=== PATIENT | female | born 1985 | race Caucasian/White ===

== ENCOUNTER 2021-04-21 06:09 | Inpatient (IN) | payer MEDICAID, SELFPAY ==
[~2021-04-21] VITALS: Ht 154.9 cm; Wt 83.9 kg
[2021-04-21 06:16] VITALS: BP 177/99
--- NOTE | 2021-04-21 06:21 | NUR ---
PT TO LOBBY TO A/W EVALUATION
--- NOTE | 2021-04-21 06:23 | NUR ---
URINE SPECIMEN PROVIDED.
--- NOTE | 2021-04-21 07:00 | NUR ---
RECEIVED REPORT FROM MANA VASQUEZ, TRANSFER OF CARE AT THIS TIME.
--- NOTE | 2021-04-21 07:03 | NUR ---
PT AMBULATED UNASSISTED TO ER CHAIR A
[2021-04-21 07:25] LABS: BASOPHILS # (AUTO) 0.1 K/uL (0.00-0.22); BASOPHILS % (AUTO) 0.9 % (0.0-2.0); EOSINOPHILS # (AUTO) 0.4 K/uL (0-0.4); EOSINOPHILS % (AUTO) 3.5 % (0.0-4.0); HEMATOCRIT 27.9 % (36-48); HEMOGLOBIN 8.4 g/dL (12.0-16.0); LYMPHOCYTES # (AUTO) 2.5 K/uL (2.5-16.5); LYMPHOCYTES % (AUTO) 24.6 % (20.5-51.1); MEAN CORPUSCULAR HEMOGLOBIN 19 pg (27-31); MEAN CORPUSCULAR HGB CONC 30 g/dL (33-37); MEAN CORPUSCULAR VOLUME 61.7 fL (80-94); MONOCYTES # (AUTO) 0.5 K/uL (0.8-1.0); MONOCYTES % (AUTO) 5.1 % (1.7-9.3); NEUTROPHILS # (AUTO) 6.6 K/uL (1.8-7.7); NEUTROPHILS % (AUTO) 65.9 % (42.2-75.2); PLATELET COUNT (AUTO) 301 K/uL (140-450); RED BLOOD CELL COUNT(AUTO) 4.52 MIL/uL (4.20-5.40); RED CELL DISTRIBUTION WIDTH 19.1 % (11.6-13.7)
[2021-04-21] MEDS ORDERED: KETOROLAC 30 MG/ML VIAL IVP ONE (07:35)
[2021-04-21 07:38] LABS: BILIRUBIN,URINE NEGATIVE (NEGATIVE); BLOOD, URINE NEGATIVE (NEGATIVE); COLOR,URINE YELLOW (YELLOW); LEUKOCYTE ESTERASE ,URINE NEGATIVE (NEGATIVE); UGLUCOSE 3+ (NEGATIVE)
[2021-04-21 07:40] LABS: PROTHROMBIN TIME 9.9 secs (10.8-13.4)
[2021-04-21 07:46] LABS: ANION GAP 12.8 (8-16); CARBON DIOXIDE 25.2 mmol/L (21-32); CREATININE 0.7 mg/dL (0.6-1.3)
[2021-04-21 07:52] LABS: ALBUMIN 3.5 g/dL (3.4-5.0); TOTAL BILIRUBIN 0.7 mg/dL (0.0-1.0)
[2021-04-21 08:08] LABS: APPEARANCE,URINE SLIGHTLY HAZY (CLEAR); RBC,URINE 0-5 /HPF (0-5); WBC,URINE 0-5 /HPF (0-5); YEAST,URINE Few /HPF (None Seen)
[2021-04-21 08:10] LABS: NITRITE, URINE POSITIVE (NEGATIVE)
[2021-04-21] MEDS ORDERED: POTASSIUM CHLORIDE 40 MEQ, LIDOCAINE MPF 1% 25 MG in NACL 0.9% 250 ML IV PRN (09:20)
[2021-04-21] MEDS ORDERED: ONDANSETRON 4 MG/2 ML VIAL IM/IVP PRN (09:20)
[2021-04-21] MEDS ORDERED: HYDROcodone/APAP 5/325 MG 1 TAB TAB PO PRN (09:20)
[2021-04-21] MEDS ORDERED: DOCUSATE SODIUM 100 MG GELCAP PO PRN (09:20)
[2021-04-21] MEDS ORDERED: SODIUM PHOS / POTASSIUM PHOS 1 PKT PDR PO PRN (09:20)
[2021-04-21] MEDS ORDERED: NACL 0.9% 1,000 ML IV SCH (09:20)
[2021-04-21] MEDS ORDERED: MAG SULF 2000 MG/WATER PREMIX 50 ML IV PRN (09:20)
[2021-04-21] MEDS ORDERED: ACETAMINOPHEN 325 MG TAB PO PRN (09:20)
[2021-04-21] MEDS ORDERED: MORPHINE SULFATE 2 MG/ML SYR IVP PRN (09:20)
[2021-04-21] MEDS ORDERED: DEXTROSE 50% 50 ML SYR IVP PRN (09:30)
[2021-04-21] MEDS: PANTOPRAZOLE 40 MG INJ VIAL IVP SCH (10:27)
--- NOTE | 2021-04-21 11:00 | NUR ---
[facility] SWAB COLLECTED AND HANDED TO [employer] COORDINATOR.
--- NOTE | 2021-04-21 11:00 | NUR ---
PT TAKEN TO BED 14. PT IN GOWN AND GIVEN BLANKET. PT POSITIONED FOR COMFORT.
--- NOTE | 2021-04-21 11:01 | NUR ---
PT ADMITTED TO [facility] UNDER DR DE LA CRUZ FOR ABDOMINAL WALL SEROMA. NO BEDS ON THE FLOOR. PT WILL BE HELD IN ER.
[2021-04-21] MEDS: DEXT 5% /NACL 0.9% 1,000 ML IV SCH ×2 (11:02→22:09)
[2021-04-21 11:09] LABS: MAGNESIUM 1.8 mg/dL (1.8-2.4); PHOSPHORUS 2.8 mg/dL (2.5-4.9)
[2021-04-21] MEDS: BLOOD GLUCOSE MONITORING 1 DEV DEV FS SCH ×3 (11:29→21:00)
[2021-04-21] MEDS: INSULIN LISPRO SLIDING SCALE 100 UNITS/ML VIAL SUBQ PRN (11:30)
--- NOTE | 2021-04-21 11:34 | NUR ---
PT BS 262. GAVE INSULIN PER SLIDING SCALE
--- NOTE | 2021-04-21 12:42 | NUR ---
DR DE LA CRUZ EVALUATING PT AT THIS TIME
--- NOTE | 2021-04-21 16:55 | NUR ---
PT BS 131, NO COVERAGE NEEDED AT THIS TIME
--- NOTE | 2021-04-21 19:15 | NUR ---
RECEIVED REPORT FROM CHRISTINA PORTER. ASSUMED CARE AT THIS TIME. PT DENIES PAIN AT THIS TIME. ALL NEEDS MET. WILL CONTINUE TO MONITOR.
--- NOTE | 2021-04-21 21:00 | NUR ---
BS 132, NO COVERAGE NEEDED AT THIS TIME.
--- NOTE | 2021-04-21 21:46 | NUR ---
C/O 8/10 THROBBING HEADACHE. MORPHINE 1MG IVP ADMINISTERED PER ORDERED.
[2021-04-21] MEDS ORDERED: FLUCONAZOLE 100 MG/NS PREMIX 50 ML IV SCH (22:45)
[2021-04-21] MEDS ORDERED: FLUCONAZOLE 100 MG TAB PO ONE (23:05)
--- NOTE | 2021-04-21 23:07 | NUR ---
100MG FLUCONAZOLE IVPB ORDERED, MEDICATION NOT AVAILABLE. DR. MCKINLEY MADE AWARE, GAVE ORDER FOR 100MG FLUCONAZOLE PO. ORDER CARRIED OUT.
--- NOTE | 2021-04-22 01:15 | NUR ---
Patient appears to be resting comfortably in bed. Vital Signs within normal limits. Respirations even and unlabored. D5/NS still infusing at 80cc/hr. Pain improvement, 12/16. Will continue to monitor.
--- NOTE | 2021-04-22 04:00 | NUR ---
PT SEEN WITH EYES CLOSED. VISIBLE CHEST RISE AND FALL NOTED. NO C/O PAIN AT THIS TIME. BED IN LOWEST POSITION. WILL CONTINUE TO MONITOR.
[2021-04-22] MEDS ORDERED: ceFAZolin 1,000 MG VIAL ONE (05:02)
--- NOTE | 2021-04-22 07:15 | NUR ---
TRANSFER OF CARE AT THIS TIME. PT LAYING IN BED WITH EVEN AND UNLABORED RESPIRATIONS. A/O X4 GCS 15. FLUIDS RUNNING AT 80ML/HR. WILL CONTINUE TO MONITOR
[2021-04-22] MEDS: BLOOD GLUCOSE MONITORING 1 DEV DEV FS SCH ×3 (07:49→16:58)
[2021-04-22] MEDS: INSULIN LISPRO SLIDING SCALE 100 UNITS/ML VIAL SUBQ PRN ×2 (07:56→17:05)
--- NOTE | 2021-04-22 08:08 | NUR ---
REPORT GIVEN TO DOMINGUEZ VASQUEZ FOR ADMISSION TO [facility].
--- NOTE | 2021-04-22 08:12 | NUR ---
Patient will be admitted to care of DR DE LA CRUZ. Admited to [facility]. Will go to [id number]. Belongings list completed. Report to DOMINGUEZ VASQUEZ.
--- NOTE | 2021-04-22 08:45 | NUR ---
RECEIVED REPORT FOR PT FROM ER NURSE. AWAITING PT ARRIVAL ONTO UNIT.
--- NOTE | 2021-04-22 08:50 | NUR ---
PT ARRIVED TO UNIT. CONDITION IS STABLE. PT HAS LAC 20 G PATENT AND INTACT. PT DNIES PAIN OR DISCOMFORT AT THIS TIME. WILL CONTINUE TO MONITOR PT CONDITION.
--- NOTE | 2021-04-22 09:02 | NUR ---
PATIENT HAS BEEN SCREENED AND CATEGORIZED LOW NUTRITION RISK. PATIENT WILL BE SEEN WITHIN 7 DAYS OF ADMISSION. 04/28/[address]
[2021-04-22] MEDS: PANTOPRAZOLE 40 MG INJ VIAL IVP SCH (09:18)
[2021-04-22 09:50] LABS: BASOPHILS # (AUTO) 0.1 K/uL (0.00-0.22); BASOPHILS % (AUTO) 1.1 % (0.0-2.0); EOSINOPHILS # (AUTO) 0.3 K/uL (0-0.4); EOSINOPHILS % (AUTO) 3.7 % (0.0-4.0); HEMATOCRIT 26.5 % (36-48); LYMPHOCYTES # (AUTO) 2.1 K/uL (2.5-16.5); LYMPHOCYTES % (AUTO) 26.9 % (20.5-51.1); MEAN CORPUSCULAR HEMOGLOBIN 18 pg (27-31); MEAN CORPUSCULAR HGB CONC 30 g/dL (33-37); MEAN CORPUSCULAR VOLUME 60.5 fL (80-94); MONOCYTES # (AUTO) 0.4 K/uL (0.8-1.0); MONOCYTES % (AUTO) 4.8 % (1.7-9.3); NEUTROPHILS % (AUTO) 63.5 % (42.2-75.2); PLATELET COUNT (AUTO) 263 K/uL (140-450); RED BLOOD CELL COUNT(AUTO) 4.39 MIL/uL (4.20-5.40); RED CELL DISTRIBUTION WIDTH 19.4 % (11.6-13.7); WHITE BLOOD COUNT (AUTO) 7.9 K/uL (4.8-10.8)
[2021-04-22] MEDS: DEXT 5% /NACL 0.9% 1,000 ML IV SCH (10:30)
--- NOTE | 2021-04-22 10:30 | NUR ---
PERFORMED FREQ ROUNDING PT CONDITION IS STABLE. PT IS AWAKE AND WATCHING TELEVISION.
[2021-04-22 10:33] LABS: ANION GAP 10.2 (8-16); CARBON DIOXIDE 27.5 mmol/L (21-32); CREATININE 0.7 mg/dL (0.6-1.3); POTASSIUM 3.7 mmol/L (3.5-5.1)
[2021-04-22 12:00] VITALS: BP 145/93
--- NOTE | 2021-04-22 12:20 | NUR ---
PT WAS TRANSPORTED TO OR VIA GURNEY BY [facility] ([employer]). PT CONDITION IS STABLE UPON TRANSFER.
[2021-04-22] MEDS ORDERED: MIDAZOLAM 2 MG/2 ML VIAL ONE (12:50)
[2021-04-22] MEDS ORDERED: fentaNYL citrate 0.05 MG/ML VIAL ONE (12:50)
[2021-04-22] MEDS ORDERED: SEVOFLURANE 250 ML BTL INH ONE (12:55)
[2021-04-22] MEDS ORDERED: BUPIVACAINE-MPF/EPI 0.5% 30 ML VIAL INJ ONE (12:56)
[2021-04-22] MEDS ORDERED: MEPERIDINE 50 MG/ML SYR ONE (13:23)
[2021-04-22] MEDS ORDERED: ONDANSETRON 4 MG/2 ML VIAL ONE (13:28)
[2021-04-22] MEDS ORDERED: PROPOFOL 200 MG/20 ML VIAL IV ONE (13:29)
[2021-04-22] MEDS ORDERED: DEXAMETHASONE 4 MG/ML VIAL ONE (13:29)
[2021-04-22] MEDS ORDERED: diphenhydrAMINE 50 MG/ML VIAL IVP PRN (13:35)
[2021-04-22] MEDS ORDERED: ONDANSETRON 4 MG/2 ML VIAL IVP PRN (13:35)
[2021-04-22] MEDS ORDERED: HYDROmorphone 1 MG/ML AMP IVP PRN (13:35)
[2021-04-22] MEDS ORDERED: MEPERIDINE 25 MG/ML SYR IVP PRN (13:35)
[2021-04-22] MEDS ORDERED: LACTATED RINGERS 1,000 ML IV SCH (13:35)
[2021-04-22] MEDS ORDERED: BLOOD GLUCOSE MONITORING 1 DEV DEV FS ONE (13:35)
--- NOTE | 2021-04-22 13:53 | NUR ---
UNABLE TO ADMINISTER SCHEDULED MEDS. PT OFF UNIT IN PROCEDURE.
--- NOTE | 2021-04-22 15:02 | NUR ---
PT EVE ON UNIT FROM PROCEDURE. RECEIVED REPORT FROM [employer]. PT RECEIVED MEDS DURING PROCEDURE. PT RECEIVED 700 ML OF FLUIDS, 50 ML OF EBL, AND 0 URINE OUTPUT. WILL CONTINUE TO MONITOR ME CONDITION.
[2021-04-22 15:40] VITALS: BP 145/93
[2021-04-22 16:00] VITALS: BP 141/81
--- NOTE | 2021-04-22 17:36 | NUR ---
PT CONDITION IS STABLE. PT IS AWAKE AND DENIES PAIN OR DISCOMFORT. DRAINED KWESI - 75 ML OUT. WILL CONTINUE TO MONITOR.
--- NOTE | 2021-04-22 19:40 | NUR ---
PT WALKED OUT VIA WHEELCHAIR. PT CONDITION IS STABLE. IV DISCONTINUED AND ID BAND REMOVED. PT TAKEN IN PRIVATE VEHICLE BY FAMILY TO HOME.
== END 2021-04-22 20:15 | disposition home or self-care (01) | DRG 813 ==
LOC: MED 06:09 → MTU 18:53 → MMU 04-22 04:42
PROVIDERS: ADMIT Hospitalist; ATTEND Hospitalist
PROC: 0W9F30Z Drainage of Abdominal Wall with Drainage Device, Percutaneous Approach (ICD-10-PCS; principal; 2021-04-22 13:35)
DX: K91.873 Postprocedural seroma of a digestive system organ or structure following other procedure (principal); E11.00 Type 2 diabetes mellitus with hyperosmolarity without nonketotic hyperglycemic-hyperosmolar coma (NKHHC); E83.51 Hypocalcemia; D64.9 Anemia, unspecified; D73.9 Disease of spleen, unspecified; B88.8 Other specified infestations; Z20.822 Contact with and (suspected) exposure to COVID-19; R74.01 Elevation of levels of liver transaminase levels; K76.0 Fatty (change of) liver, not elsewhere classified; Y83.8 Other surgical procedures as the cause of abnormal reaction of the patient, or of later complication, without mention of misadventure at the time of the procedure; Z98.891 History of uterine scar from previous surgery; Y92.89 Other specified places as the place of occurrence of the external cause
CPT/HCPCS: 36415; 76705; 80048; 80053; 81001; 82948; 83036; 83690; 83735; 84100; 85025; 85610; 85730; 87070; 87075; 87086; 87205; 88304; 96365; 96375; 99285; C9113; J0690; J1100; J1450; J1815; J1885; J2175; J2250; J2270; J2405; J2704; J3010; J3490; J7060; J7120; Q0092

== ENCOUNTER 2021-06-24 20:37 | Emergency (ER) | payer MEDICAID, SELFPAY ==
[~2021-06-24] VITALS: Ht 154.9 cm; Wt 79.4 kg
[~2021-06-24 20:37] MED LIST: CLIN300C2 PO; FERR325E14 PO; LEVO750T51 PO; PANT40EC56 PO
[2021-06-24 20:40] VITALS: BP 154/117
[2021-06-24 23:01] LABS: BASOPHILS # (AUTO) 0.1 K/uL (0.00-0.22); BASOPHILS % (AUTO) 0.4 % (0.0-2.0); EOSINOPHILS # (AUTO) 0.3 K/uL (0-0.4); EOSINOPHILS % (AUTO) 2.5 % (0.0-4.0); HEMATOCRIT 34.5 % (36-48); LYMPHOCYTES % (AUTO) 23.8 % (20.5-51.1); MEAN CORPUSCULAR HEMOGLOBIN 23 pg (27-31); MEAN CORPUSCULAR HGB CONC 32 g/dL (33-37); MONOCYTES # (AUTO) 0.7 K/uL (0.8-1.0); MONOCYTES % (AUTO) 5.8 % (1.7-9.3); NEUTROPHILS # (AUTO) 8.6 K/uL (1.8-7.7); NEUTROPHILS % (AUTO) 67.5 % (42.2-75.2); PLATELET COUNT (AUTO) 377 K/uL (140-450); RED BLOOD CELL COUNT(AUTO) 4.86 MIL/uL (4.20-5.40); WHITE BLOOD COUNT (AUTO) 12.7 K/uL (4.8-10.8)
[2021-06-24 23:16] LABS: ALBUMIN 3.4 g/dL (3.4-5.0); CARBON DIOXIDE 31.5 mmol/L (21-32); CREATININE 0.8 mg/dL (0.6-1.3); POTASSIUM 4.5 mmol/L (3.5-5.1); TOTAL BILIRUBIN 0.4 mg/dL (0.0-1.0)
--- NOTE | 2021-06-24 23:36 | NUR ---
PT AMBULATED TO BED #4
--- NOTE | 2021-06-24 23:47 | NUR ---
35 YO/F BIB SELF W C/O OF CHILLS AND FOUL SMELLING INCISION SITE FROM LOWER ABDOMINAL/PELVIC AREA ON MAY 13 TO DRAIN AN INFECTION FROM TUMMY TUCK DONE IN 2014. PT DENIES ANY CHILLS AT THIS TIME BUT REPORTS HAD SIMILAR SYMPTOMS THE LAST TIME SHE HAD THE INFECTION. PT DENIES ANY FEVERS, PAIN, OR OTHER SYMPTOMS. INCISION SITE IS OPENED AND PACKED W GAUZE. NO FOUL SMELL NOTED, NO REDNESS, WARMTH OR SWELLING PRESENT AT SITE. PATIENT LAYING IN BED W HEAD OF BED ELEVATED, BED LOCKED IN LOWEST POSITION W X1 SIDERAIL UP. BREATHING EVEN AND UNLABORED. NAD NOTED, WILL DONTINUE TO MONITOR. PSH ; TUMMY TUCK 2014, OTHER SURGERY MAY 2015 [facility]
--- NOTE | 2021-06-25 02:46 | NUR ---
PT LAYING IN BED LOCKED IN LOWEST POSITION W X1 SIDERAIL UP. BREATHING EVEB ABD UNLABORED. VSS.
[2021-06-25 05:08] VITALS: BP 127/81
--- NOTE | 2021-06-25 05:08 | NUR ---
Patient discharged with v/s stable. Written and verbal after care instructions given and explained. Patient verbalized understanding. Ambulatory with steady gait. All questions addressed prior to discharge. Advised to follow up with PMD.
== END 2021-06-25 05:08 | disposition home or self-care (01) ==
LOC: MED 20:37
DX: T81.89XA Other complications of procedures, not elsewhere classified, initial encounter (principal); Z79.899 Other long term (current) drug therapy; Z79.2 Long term (current) use of antibiotics; Y84.8 Other medical procedures as the cause of abnormal reaction of the patient, or of later complication, without mention of misadventure at the time of the procedure
CPT/HCPCS: 36415; 74177; 80053; 81002; 81025; 83605; 83690; 85025; 86140; 87040; 99285; Q9967